=== PATIENT | female | born 1960 | race African-American/Black ===

== ENCOUNTER 2018-07-18 09:37 | Emergency (ER) | payer MEDICAID ==
[~2018-07-18] VITALS: Ht 157.5 cm; Wt 81.6 kg
[~2018-07-18 09:37] MED LIST: CLON0.5T PO; ESTR-7 PO
--- NOTE | 2018-07-18 09:37 | NUR ---
BIB SELF W C/O NECK PAIN RADIATES TO LEFT UPPER EXTREMITY X 2 DAYS, TO ER BED 1, HOOKED TO MONITOR, AWAITING MD NAM
--- NOTE | 2018-07-18 09:58 | NUR ---
DR KHAN AT BEDSIDE
[2018-07-18] MEDS ORDERED: DIAZEPAM 10 MG TABLET PO ONE (10:00)
[2018-07-18] MEDS ORDERED: KETOROLAC TROMETHAMINE INJ 30 MG/ML VIAL IM ONE (10:00)
--- NOTE | 2018-07-18 10:05 | NUR ---
SILICA FILTER OPERATOR AT BEDSIDE
[2018-07-18] MEDS ORDERED: DIAZEPAM 10 MG TABLET ONE (10:10)
[2018-07-18] MEDS ORDERED: KETOROLAC TROMETHAMINE INJ 60 MG/2 ML VIAL IM ONE (10:10)
--- NOTE | 2018-07-18 11:25 | NUR ---
SOFT C COLLAR APPLIED.
--- NOTE | 2018-07-18 11:32 | NUR ---
Patient discharged to home in stable condition. Written and verbal after care instructions given. Patient verbalizes understanding of instruction.
[2018-07-18 11:41] VITALS: BP 138/85
== END 2018-07-18 11:43 | disposition home or self-care (01) ==
LOC: ER 09:39
DX: S29.012A Strain of muscle and tendon of back wall of thorax, initial encounter (principal); M41.9 Scoliosis, unspecified; F41.9 Anxiety disorder, unspecified; R00.1 Bradycardia, unspecified; F32.9 Major depressive disorder, single episode, unspecified; F10.10 Alcohol abuse, uncomplicated; Y90.9 Presence of alcohol in blood, level not specified; Z90.710 Acquired absence of both cervix and uterus; Z88.2 Allergy status to sulfonamides; Z88.5 Allergy status to narcotic agent; X58.XXXA Exposure to other specified factors, initial encounter; Y93.89 Activity, other specified; Y92.89 Other specified places as the place of occurrence of the external cause; Y99.8 Other external cause status
CPT/HCPCS: 72070; 93005; 96372; 99283; J1885